=== PATIENT | male | born 1960 | race Caucasian/White ===

== ENCOUNTER 2024-09-08 11:23 | Emergency (ER) | payer MEDICARE, MEDICAID ==
[2024-09-08] MEDS ORDERED: Ondansetron PF 4 MG/2 ML Vial ONE (11:54)
[2024-09-08] MEDS ORDERED: HYDROmorphone 0.5 MG/0.5 ML SYRINGE ONE ×3 (11:54→16:28)
[2024-09-08] MEDS ORDERED: Ketorolac Tromethamine 30 MG (1 mL) VIAL ONE (11:54)
[2024-09-08 12:28] LABS: #Basophils 0.03 10x3/uL (0.0-0.2); #Eosinophils 0.14 10x3/uL (0.0-0.7); #Monocytes 0.53 10x3/uL (0.11-0.59); #Neutrophils 3.37 10x3/uL (1.40-6.50); %Basophils 0.6 % (0.0-1.0); %Eosinophils 2.7 % (0.0-10.0); %Lymphocytes 20.8 % (21.0-51.0); %Monocytes 10.1 % (0.0-10.0); %Neutrophils 64.1 % (42.0-75.0); Hematocrit 37.0 % (42.0-52.0); Hemoglobin 11.7 g/dL (14.0-18.0); Mean Corpuscular Hemoglobin 24.7 pg (27.0-31.0); Mean Corpuscular Volume 78.2 fL (78.0-98.0); Platelet Count 178 10x3/uL (130-400); Red Blood Cell (RBC) Count 4.73 mill/uL (4.70-6.10); White Blood Cell (WBC) Count 5.25 10x3/uL (4.8-10.8)
[2024-09-08 12:46] LABS: ALT (SGPT) 25 U/L (Less than 45); AST (SGOT) 22 U/L (11-34); Albumin 3.4 g/dL (3.1-4.5); Alkaline Phosphatase 150 U/L (40-110); Anion Gap 15 mmol/L (10-20); BUN (Urea Nitrogen) 13 mg/dL (8.4-25.7); Bilirubin, Total 1.6 mg/dL (0.3-1.2); Calc. Creatinine Clearance 0 mL/min (70-130); Calcium 8.6 mg/dL (7.8-10.44); Carbon Dioxide 24 mmol/L (23-31); Chloride 98 mmol/L (98-107); Globulin 3.3 g/dL (2.4-3.5); Glucose 121 mg/dL (80-115); Lipase 11 U/L (8-78); Magnesium 1.7 mg/dL (1.6-2.6); Potassium 3.9 mmol/L (3.5-5.1); Sodium 133 mmol/L (136-145)
[2024-09-08 16:20] LABS: Bacteria/HPF None Seen HPF (None Seen); CAUTI Indications for Culture Pelvic or flank pain; Glucose, Urine (Dipstick) Normal (Negative); Leukocyte Negative Leu/uL (Negative); Protein, Urine (Dipstick) Negative (Neg-Trace); RBC/HPF 0-3 HPF (0-3); Specific Gravity, Urine 1.024 (1.002-1.036); WBC/HPF 0-3 HPF (0-3)
[2024-09-08 16:24] LABS: Sperm/HPF Rare HPF (None Seen)
[2024-09-08 16:25] LABS: Urine Culture Reflex No No
== END 2024-09-08 18:00 | disposition home or self-care (01) ==
LOC: ERS 11:23
DX: R19.00 Intra-abdominal and pelvic swelling, mass and lump, unspecified site (principal); R10.31 Right lower quadrant pain; R10.32 Left lower quadrant pain; F17.220 Nicotine dependence, chewing tobacco, uncomplicated; Z55.6 Problems related to health literacy
CPT/HCPCS: 74176; 80053; 81001; 83605; 83690; 83735; 85025; 93005; J1171; J1885; J2405; 36415; 96374; 96375; 96376

== ENCOUNTER 2024-09-11 16:17 | Inpatient (IN) | payer MEDICARE, MEDICAID ==
[2024-09-11 16:37] LABS: #Basophils 0.03 10x3/uL (0.0-0.2); #Eosinophils 0.09 10x3/uL (0.0-0.7); #Monocytes 0.74 10x3/uL (0.11-0.59); #Neutrophils 2.68 10x3/uL (1.40-6.50); %Basophils 0.7 % (0.0-1.0); %Eosinophils 2.0 % (0.0-10.0); %Lymphocytes 22.1 % (21.0-51.0); %Monocytes 16.1 % (0.0-10.0); %Neutrophils 58.0 % (42.0-75.0); Hematocrit 33.8 % (42.0-52.0); Hemoglobin 10.8 g/dL (14.0-18.0); Mean Corpuscular Hemoglobin 24.4 pg (27.0-31.0); Mean Corpuscular Volume 76.5 fL (78.0-98.0); Platelet Count 143 10x3/uL (130-400); Red Blood Cell (RBC) Count 4.42 mill/uL (4.70-6.10); White Blood Cell (WBC) Count 4.61 10x3/uL (4.8-10.8)
[2024-09-11 16:55] LABS: ALT (SGPT) 17 U/L (Less than 45); AST (SGOT) 28 U/L (11-34); Albumin 3.1 g/dL (3.1-4.5); Alkaline Phosphatase 137 U/L (40-110); Anion Gap 15 mmol/L (10-20); BUN (Urea Nitrogen) 23 mg/dL (8.4-25.7); Bilirubin, Total 1.2 mg/dL (0.3-1.2); Calc. Creatinine Clearance 0 mL/min (70-130); Calcium 8.1 mg/dL (7.8-10.44); Carbon Dioxide 23 mmol/L (23-31); Chloride 99 mmol/L (98-107); Globulin 3.2 g/dL (2.4-3.5); Glucose 103 mg/dL (80-115); Potassium 4.1 mmol/L (3.5-5.1); Sodium 133 mmol/L (136-145)
[2024-09-11] MEDS ORDERED: Ondansetron PF 4 MG/2 ML Vial IVP PRN (22:00)
[2024-09-12] MEDS: Acetaminophen 325 MG TAB PO PRN (05:21)
[2024-09-12 05:46] LABS: #Basophils 0.03 10x3/uL (0.0-0.2); #Eosinophils 0.12 10x3/uL (0.0-0.7); #Monocytes 0.98 10x3/uL (0.11-0.59); #Neutrophils 2.41 10x3/uL (1.40-6.50); %Basophils 0.6 % (0.0-1.0); %Eosinophils 2.4 % (0.0-10.0); %Lymphocytes 28.3 % (21.0-51.0); %Monocytes 19.7 % (0.0-10.0); %Neutrophils 48.4 % (42.0-75.0); Hematocrit 32.5 % (42.0-52.0); Hemoglobin 10.2 g/dL (14.0-18.0); Mean Corpuscular Hemoglobin 24.0 pg (27.0-31.0); Mean Corpuscular Volume 76.5 fL (78.0-98.0); Platelet Count 158 10x3/uL (130-400); Red Blood Cell (RBC) Count 4.25 mill/uL (4.70-6.10); White Blood Cell (WBC) Count 4.98 10x3/uL (4.8-10.8)
[2024-09-12 06:52] VITALS: BMI 30.6
[2024-09-12 07:12] LABS: Anion Gap 13 mmol/L (10-20); BUN (Urea Nitrogen) 18 mg/dL (8.4-25.7); Calc. Creatinine Clearance 119 mL/min (70-130); Calcium 8.1 mg/dL (7.8-10.44); Carbon Dioxide 21 mmol/L (23-31); Chloride 101 mmol/L (98-107); Glucose 108 mg/dL (80-115); Potassium 3.8 mmol/L (3.5-5.1); Sodium 131 mmol/L (136-145)
[2024-09-12] MEDS: Enoxaparin 40 MG (0.4 mL) SYRINGE SC SCH (10:06)
[2024-09-12] MEDS: Ketorolac Tromethamine 30 MG (1 mL) VIAL IVP PRN (10:15)
[2024-09-12] MEDS ORDERED: Colchicine 0.6 MG TAB PO PRN (13:57)
[2024-09-12] MEDS ORDERED: Albuterol 200 PUFF INH INH PRN (13:59)
[2024-09-12] MEDS: HYDROcodone/Acetaminophen 10/325 mg Tablet PO PRN (16:21)
[2024-09-13 06:17] LABS: Iron 17 ug/dL (65-175); Iron Binding Capacity, Total 208 mcg/dL (261-462)
[2024-09-13 06:38] LABS: Hematocrit 31.1 % (42.0-52.0); Hemoglobin 10.0 g/dL (14.0-18.0); Mean Corpuscular Hemoglobin 24.6 pg (27.0-31.0); Mean Corpuscular Volume 76.6 fL (78.0-98.0); Platelet Count 145 10x3/uL (130-400); Red Blood Cell (RBC) Count 4.06 mill/uL (4.70-6.10); White Blood Cell (WBC) Count 4.85 10x3/uL (4.8-10.8)
[2024-09-13 07:21] LABS: Anisocytosis SLIGHT = 6-15 cells HPF (0-5); Platelet Adequacy Comment Platelets Normal; Polychromasia SLIGHT = 2-3 cells HPF (0-2); Smudge Cells 9.9 %
[2024-09-13 13:28] VITALS: BP 128/75; TEMP 99.3
== END 2024-09-13 15:18 | disposition home or self-care (01) | DRG 71 ==
LOC: ERS 16:17 → SURG B 21:32 → OBSVTOIN 09-13 09:21
PROVIDERS: ADMIT Internal Medicine; ATTEND Internal Medicine
DX: G93.41 Metabolic encephalopathy (principal); C79.9 Secondary malignant neoplasm of unspecified site; N17.9 Acute kidney failure, unspecified; M10.9 Gout, unspecified; Z51.5 Encounter for palliative care; R53.1 Weakness; Z79.899 Other long term (current) drug therapy
CPT/HCPCS: 36415; 70450; 70553; 71045; 71275; 76376; 80048; 80053; 82533; 82728; 83540; 83550; 85025; 87040; 93005; 96361; 96372; 96374; 96375; 96376; G0378; J1650; J1885; J2270

== ENCOUNTER 2024-11-27 09:53 | Outpatient (CLI) | payer MEDICARE, MEDICAID | END 2024-11-27 09:54 | disposition home or self-care (01) | LOC: MRI 09:53 | PROVIDERS: ATTEND Radiology Radiation Oncology | DX: C79.31 Secondary malignant neoplasm of brain (principal) | CPT/HCPCS: 70553; 76376 ==

== ENCOUNTER 2024-12-06 12:30 | Outpatient (CLI) | payer MEDICARE, MEDICAID | END 2024-12-06 12:31 | disposition home or self-care (01) | LOC: PET 12:30 | PROVIDERS: ATTEND Internal Medicine | DX: C43.8 Malignant melanoma of overlapping sites of skin (principal); Z79.899 Other long term (current) drug therapy; R59.1 Generalized enlarged lymph nodes | CPT/HCPCS: 78816; A9552 ==